=== PATIENT | male | born 1955 | race Caucasian/White ===

== ENCOUNTER 2018-07-20 11:49 | Emergency (ER) | payer OTHER, BC ==
[~2018-07-20] VITALS: Ht 162.6 cm; Wt 101.1 kg
[2018-07-20] MEDS ORDERED: SODIUM CHLORIDE FLUSH 10ML SYR IVF ONE (12:30)
[2018-07-20 12:49] LABS: BASOPHILS # (AUTO) 0.03 x10^3/uL (0-0.1); BASOPHILS % (AUTO) 0 % (0-1); EOSINOPHILS # (AUTO) 0.12 x10^3/uL (0-0.4); EOSINOPHILS % (AUTO) 1 % (1-7); LYMPHOCYTES # (AUTO) 2.53 x10^3/uL (1-3.4); LYMPHOCYTES % (AUTO) 22 % (22-44); MD NO; MEAN CORPUSCULAR HEMOGLOBIN 31.9 pg (27.5-34.5); MEAN CORPUSCULAR HGB CONC 34.4 g/dL (33.2-36.2); MEAN CORPUSCULAR VOLUME 92.8 fL (81-97); MEAN PLATELET VOLUME 7.9 fL (7.4-10.4); MONOCYTES # (AUTO) 1.14 x10^3/uL (0.2-0.8); MONOCYTES % (AUTO) 10 % (2-9); NEUTROPHILS # (AUTO) 7.76 x10^3/uL (1.8-6.8); NEUTROPHILS % (AUTO) 67 % (42-75); PLATELET COUNT 225 x10^3/uL (130-400); RED BLOOD COUNT 5.42 x10^6/uL (4.38-5.82); RED CELL DISTRIBUTION WIDTH 13.1 % (9.4-14.8)
[2018-07-20 13:01] LABS: CHLORIDE 108 mmol/L (98-107)
[2018-07-20 13:02] LABS: ALANINE AMINOTRANSFERASE 20 U/L (12-78); ALBUMIN 3.9 g/dL (3.4-5.0); ANION GAP 6 mmol/L (5-15); CREATININE 0.99 mg/dL (0.7-1.3)
[2018-07-20 13:03] LABS: ALKALINE PHOSPHATASE 59 U/L (45-117); BILIRUBIN,TOTAL 0.5 mg/dL (0.2-1.0); TOTAL PROTEIN 7.8 g/dL (6.4-8.2)
[2018-07-20 13:21] LABS: MICROSCOPIC NOT IND
[2018-07-20 13:24] LABS: CULTURE INDICATED? NO
[2018-07-20] MEDS ORDERED: OMNIPAQUE 350 MG/ML, 100ML BOTTLE ONE (14:00)
[2018-07-20 15:24] VITALS: BP 109/62
== END 2018-07-20 15:26 | disposition home or self-care (01) ==
LOC: ED 15:08
DX: K57.30 Diverticulosis of large intestine without perforation or abscess without bleeding (principal); I10 Essential (primary) hypertension; F17.200 Nicotine dependence, unspecified, uncomplicated
CPT/HCPCS: 36415; 74177; 80053; 81003; 83605; 83690; 85025; 99284; Q9967

== ENCOUNTER 2018-08-07 10:56 | Emergency (ER) | payer OTHER, BC ==
[~2018-08-07] VITALS: Ht 160 cm; Wt 100.7 kg
[2018-08-07 10:58] VITALS: BP 148/94
[2018-08-07] MEDS ORDERED: OXYMETAZOLINE NASAL SPRAY 0.05%, 15ML ONE ×2 (11:54→12:12)
--- NOTE | 2018-08-07 12:15 | NUR ---
DR. SCHNEIDER AT BEDSIDE.
[2018-08-08] MEDS ORDERED: HYDR-3653 PO (14:38)
[2018-08-08] MEDS ORDERED: ONDA4TAB13 SL (14:39)
[2018-08-08] MEDS ORDERED: CEPH-368 PO (14:40)
== END 2018-08-07 12:52 | disposition home or self-care (01) ==
LOC: ED 11:08
DX: R04.0 Epistaxis (principal); I10 Essential (primary) hypertension; F17.200 Nicotine dependence, unspecified, uncomplicated
CPT/HCPCS: 30901; 99284

== ENCOUNTER 2018-08-07 14:49 | Inpatient (IN) | payer OTHER, BC ==
[~2018-08-07] VITALS: Ht 160 cm; Wt 108.3 kg
[2018-08-07] MEDS ORDERED: BENZOCAINE AEROSOL SPRAY 20%, 60ML ONE (15:07)
[2018-08-07 15:44] LABS: BASOPHILS # (AUTO) 0.05 x10^3/uL (0-0.1); BASOPHILS % (AUTO) 0 % (0-1); EOSINOPHILS # (AUTO) 0.08 x10^3/uL (0-0.4); EOSINOPHILS % (AUTO) 1 % (1-7); LYMPHOCYTES # (AUTO) 2.63 x10^3/uL (1-3.4); LYMPHOCYTES % (AUTO) 20 % (22-44); MD NO; MEAN CORPUSCULAR HEMOGLOBIN 31.7 pg (27.5-34.5); MEAN CORPUSCULAR HGB CONC 34.3 g/dL (33.2-36.2); MEAN CORPUSCULAR VOLUME 92.3 fL (81-97); MEAN PLATELET VOLUME 7.6 fL (7.4-10.4); MONOCYTES # (AUTO) 0.66 x10^3/uL (0.2-0.8); MONOCYTES % (AUTO) 5 % (2-9); NEUTROPHILS % (AUTO) 74 % (42-75); PLATELET COUNT 272 x10^3/uL (130-400); RED BLOOD COUNT 5.02 x10^6/uL (4.38-5.82); RED CELL DISTRIBUTION WIDTH 13.3 % (9.4-14.8)
[2018-08-07 15:49] LABS: ANION GAP 9 mmol/L (5-15); CALCIUM 8.3 mg/dL (8.5-10.1); CHLORIDE 108 mmol/L (98-107); CREATININE 0.89 mg/dL (0.7-1.3)
[2018-08-07 15:57] LABS: INTERNATIONAL NORMALIZED RATIO 1.02 (0.93-1.1); PROTHROMBIN TIME 10.8 Seconds (9.6-11.5)
--- NOTE | 2018-08-07 16:03 | NUR ---
REPORT TO OR, IV IN PROGRESS, PT AWARE TO REMOVE ALL CLOTHING AND JEWELRY.
[2018-08-07] MEDS ORDERED: FENTANYL PF 100 MCG/2ML ONE (16:05)
[2018-08-07] MEDS ORDERED: SUCCINYLCHOLINE 20 MG/ML, 10ML ONE (16:05)
[2018-08-07] MEDS ORDERED: PROPOFOL 10 MG/ML, 20ML ONE (16:05)
[2018-08-07] MEDS ORDERED: ROCURONIUM 10MG/ML,5ML ONE (16:05)
--- NOTE | 2018-08-07 16:23 | NUR ---
OR TECH STATES THEY WILL INSERT IV UPSTAIRS. PT TRANSPORTED WITH TECH AND FAMILY.
[2018-08-07] MEDS ORDERED: EPINEPHRINE TOPICAL SOLN 1 MG/ML, 30ML ONE (16:25)
[2018-08-07] MEDS ORDERED: BUPIVACAINE/PF-EPI 0.5% 1:200K ONE (16:25)
[2018-08-07] MEDS ORDERED: MUPIROCIN OINT 2%, 22GM ONE (16:25)
[2018-08-07] MEDS ORDERED: LIDOCAINE 1%-EPI 1:100K, 30ML ONE (16:26)
[2018-08-07] MEDS ORDERED: EPINEPHRINE 1 MG/ML, 1ML ONE (16:26)
[2018-08-07] MEDS ORDERED: OXYMETAZOLINE NASAL SPRAY 0.05%, 15ML ONE (16:26)
[2018-08-07] MEDS ORDERED: COCAINE TOPICAL SOLN 4%, 4ML ONE (16:26)
[2018-08-07] MEDS ORDERED: PROMETHAZINE 25 MG/ML, 1ML IM PRN (16:30)
[2018-08-07] MEDS ORDERED: HYDROmorphone 2 MG/ML, 1ML IVPush PRN (16:30)
[2018-08-07] MEDS ORDERED: MEPERIDINE/PF 25MG/0.5ML IVPush PRN ×2 (16:30→18:00)
[2018-08-07] MEDS ORDERED: FENTANYL PF 100 MCG/2ML IV PRN ×2 (16:30→18:00)
[2018-08-07] MEDS ORDERED: ONDANSETRON 2MG/ML, 2ML IV PRN ×2 (16:30→18:00)
[2018-08-07] MEDS ORDERED: OXYcodone 5 MG/5 ML ORAL.SOL UDC PO PRN ×2 (16:30→18:00)
[2018-08-07] MEDS ORDERED: hydrALAzine 20 MG/ML, 1ML IV PRN ×2 (16:30→18:00)
[2018-08-07] MEDS ORDERED: LABETALOL 5MG/ML, 20ML IV PRN (16:30)
[2018-08-07] MEDS ORDERED: MIDAZOLAM 1 MG/ML, 2ML ONE (17:10)
[2018-08-07] MEDS ORDERED: ONDANSETRON 2MG/ML, 2ML ONE (17:15)
[2018-08-07] MEDS ORDERED: DEXAMETHASONE 4 MG/ML, 1ML ONE (17:15)
[2018-08-07] MEDS ORDERED: CEFAZOLIN 1,000 MG ONE (17:15)
[2018-08-07] MEDS ORDERED: PHENYLEPHRINE 10 MG/ML ONE (17:15)
[2018-08-07] MEDS ORDERED: PROMETHAZINE 12.5 MG SUPP PR PRN (18:00)
[2018-08-07] MEDS ORDERED: MIDAZOLAM 1 MG/ML, 2ML IV PRN (18:00)
[2018-08-07] MEDS ORDERED: ONDANSETRON ODT 8 MG PO PRN (18:00)
[2018-08-07] MEDS ORDERED: PROMETHAZINE 25 MG/ML, 1ML IV PRN (18:00)
[2018-08-07] MEDS ORDERED: EPHEDRINE 50 MG/ML, 1ML IVPush PRN (18:00)
[2018-08-07] MEDS ORDERED: PROMETHAZINE 25 MG SUPP PR PRN (18:00)
[2018-08-07] MEDS ORDERED: METOPROLOL 1 MG/ML, 5ML IV PRN (18:00)
[2018-08-07] MEDS ORDERED: DIPHENHYDRAMINE 50 MG/ML, 1ML IVPush PRN (18:00)
[2018-08-07] MEDS ORDERED: MORPHINE SULFATE 4 MG/ML, 1ML IVPush PRN (18:00)
[2018-08-07] MEDS ORDERED: MICROFIBRILLAR COLLAGEN 1 GM TP ONE (18:27)
[2018-08-07] MEDS ORDERED: MICROFIBRILLAR COLLAGEN 70X35X1 DRESSING ONE (18:27)
[2018-08-07] MEDS ORDERED: OXYcodone 5 MG/5 ML ORAL.SOL UDC ONE (19:43)
[2018-08-07] MEDS ORDERED: ACETAMINOPHEN 325 MG TABLET PO PRN (22:30)
[2018-08-07] MEDS ORDERED: OXYcodone/APAP 5/325MG TABLET PO PRN (22:30)
[2018-08-07] MEDS ORDERED: ONDANSETRON 2MG/ML, 2ML IVPush PRN (22:30)
[2018-08-07] MEDS ORDERED: LOSARTAN 50MG TABLET PO SCH (22:52)
[2018-08-08 03:15] VITALS: BP 154/88
[2018-08-08] MEDS: CEFAZOLIN PMX 1GM/50ML 50 ML IV SCH ×2 (04:46→11:37)
[2018-08-08] MEDS ORDERED: CALCIUM CARBONATE 500 MG TAB.CHEW PO PRN (05:00)
[2018-08-08 05:42] LABS: MEAN CORPUSCULAR HEMOGLOBIN 31.6 pg (27.5-34.5); MEAN CORPUSCULAR HGB CONC 33.7 g/dL (33.2-36.2); MEAN CORPUSCULAR VOLUME 93.7 fL (81-97); MEAN PLATELET VOLUME 7.8 fL (7.4-10.4); PLATELET COUNT 246 x10^3/uL (130-400); RED BLOOD COUNT 4.64 x10^6/uL (4.38-5.82); RED CELL DISTRIBUTION WIDTH 13.3 % (9.4-14.8)
[2018-08-08 05:46] LABS: ANION GAP 8 mmol/L (5-15); CALCIUM 8.4 mg/dL (8.5-10.1); CHLORIDE 103 mmol/L (98-107); CREATININE 0.91 mg/dL (0.7-1.3)
[2018-08-08 07:05] LABS: BASOPHILS # (AUTO) 0.03 x10^3/uL (0-0.1); BASOPHILS % (AUTO) 0 % (0-1); EOSINOPHILS % (AUTO) 0 % (1-7); LYMPHOCYTES # (AUTO) 1.72 x10^3/uL (1-3.4); LYMPHOCYTES % (AUTO) 9 % (22-44); MD SCAN; MONOCYTES # (AUTO) 0.83 x10^3/uL (0.2-0.8); MONOCYTES % (AUTO) 5 % (2-9); NEUTROPHILS # (AUTO) 15.96 x10^3/uL (1.8-6.8); NEUTROPHILS % (AUTO) 86 % (42-75)
[2018-08-08 07:10] VITALS: BP 155/89
[2018-08-08] MEDS ORDERED: HYDROCHLOROTHIAZIDE 25 MG TABLET PO SCH (09:00)
[2018-08-08 13:22] VITALS: BP 113/65
[2018-08-08 14:18] VITALS: BP 151/73
[2018-08-08] MEDS ORDERED: HYDR-3653 PO (14:38)
[2018-08-08] MEDS ORDERED: ONDA4TAB13 SL (14:39)
[2018-08-08] MEDS ORDERED: CEPH-368 PO (14:40)
[2018-08-09] MEDS ORDERED: CEPH-368 PO (17:14)
[2018-08-09] MEDS ORDERED: HYDR25TA6 PO (17:14)
[2018-08-09] MEDS ORDERED: LOSA100T7 PO (17:14)
== END 2018-08-08 15:00 | disposition home or self-care (01) | DRG 133 ==
LOC: OR 15:57 → EDIP 15:58 → 4NOR 20:00 → DCLOUNGE 08-08 14:40
PROVIDERS: ADMIT Hospitalist; ATTEND Hospitalist
PROC: 09BL0ZZ Excision of Nasal Turbinate, Open Approach (ICD-10-PCS; 2018-08-07)
PROC: 09QL0ZZ Repair Nasal Turbinate, Open Approach (ICD-10-PCS; 2018-08-07)
PROC: 09QL0ZZ Repair Nasal Turbinate, Open Approach (ICD-10-PCS; 2018-08-07)
PROC: 09SL0ZZ Reposition Nasal Turbinate, Open Approach (ICD-10-PCS; 2018-08-07)
PROC: 09RM07Z Replacement of Nasal Septum with Autologous Tissue Substitute, Open Approach (ICD-10-PCS; principal; 2018-08-07 16:30)
DX: R04.0 Epistaxis (principal); Z68.41 Body mass index [BMI] 40.0-44.9, adult; D72.828 Other elevated white blood cell count; E66.9 Obesity, unspecified; F17.210 Nicotine dependence, cigarettes, uncomplicated; I10 Essential (primary) hypertension; J33.8 Other polyp of sinus; J34.2 Deviated nasal septum; R09.02 Hypoxemia; Z82.49 Family history of ischemic heart disease and other diseases of the circulatory system; Z83.3 Family history of diabetes mellitus
CPT/HCPCS: 36415; 80048; 82040; 85025; 85610; 88305; 88311; 99285; G0378; J0171; J0690; J1100; J2250; J2405; J2704; J3010; J3490; J0330; J2370

== ENCOUNTER 2018-08-09 12:57 | Inpatient (IN) | payer OTHER, BC ==
[~2018-08-09] VITALS: Ht 162.6 cm; Wt 101.3 kg
[~2018-08-09 12:57] MED LIST: CEPH-368 PO; HYDR-3653 PO; ONDA4TAB13 SL
[2018-08-09] MEDS ORDERED: SODIUM CHLORIDE 0.9% 1,000 ML IV ONE ×2 (13:34→14:23)
[2018-08-09] MEDS ORDERED: SODIUM CHLORIDE FLUSH 10ML SYR IVF ONE (14:00)
[2018-08-09 14:21] LABS: ALBUMIN 3.5 g/dL (3.4-5.0); ANION GAP 8 mmol/L (5-15); CALCIUM 8.8 mg/dL (8.5-10.1); CHLORIDE 104 mmol/L (98-107); INTERNATIONAL NORMALIZED RATIO 1.05 (0.93-1.1); PROTHROMBIN TIME 11.1 Seconds (9.6-11.5)
[2018-08-09 14:22] LABS: CREATININE 0.87 mg/dL (0.7-1.3)
[2018-08-09 14:26] LABS: BASOPHILS # (AUTO) 0.04 x10^3/uL (0-0.1); BASOPHILS % (AUTO) 0 % (0-1); EOSINOPHILS # (AUTO) 0.12 x10^3/uL (0-0.4); EOSINOPHILS % (AUTO) 1 % (1-7); LYMPHOCYTES # (AUTO) 2.89 x10^3/uL (1-3.4); LYMPHOCYTES % (AUTO) 23 % (22-44); MD NO; MEAN CORPUSCULAR HEMOGLOBIN 31.8 pg (27.5-34.5); MEAN CORPUSCULAR HGB CONC 34.2 g/dL (33.2-36.2); MEAN PLATELET VOLUME 7.6 fL (7.4-10.4); MONOCYTES # (AUTO) 1.03 x10^3/uL (0.2-0.8); MONOCYTES % (AUTO) 8 % (2-9); NEUTROPHILS # (AUTO) 8.41 x10^3/uL (1.8-6.8); NEUTROPHILS % (AUTO) 67 % (42-75); PLATELET COUNT 219 x10^3/uL (130-400); RED BLOOD COUNT 4.46 x10^6/uL (4.38-5.82); RED CELL DISTRIBUTION WIDTH 12.9 % (9.4-14.8)
[2018-08-09] MEDS ORDERED: SODIUM CHLORIDE FLUSH 10ML SYR IVF PRN (14:30)
--- NOTE | 2018-08-09 14:35 | NUR ---
PT ARRIVES TO ED WITH EPITAXIS X 2 DAYS NOW. PT HAD CAUTERIZATION LAST NIGHT. HOWEVERE WHEN HE WOKE UP THIS MORNING HE HAD BLEEDING AGAIN. PACKING WAS IN PLACE BUT HE WAS SWALLOWING COPIOUS AMOUNTS. PT REPROTS THAT HE FEELS THE BLOOD DRIP DOWN HIS PALATE. PT CONNECTED TO MONITORS AND CALL LIGHT IN REACH. AWAITING FURHTER ORDERS.
[2018-08-09] MEDS ORDERED: SODIUM CHLORIDE 0.9% 1,000 ML IV SCH (14:36)
[2018-08-09] MEDS ORDERED: HYDROcodone/APAP 5/325 TABLET PO PRN (15:00)
[2018-08-09] MEDS ORDERED: LABETALOL 5MG/ML, 20ML IVPush PRN (15:00)
[2018-08-09] MEDS ORDERED: morphine SULFATE 10 MG/ML, 1ML IVPush PRN (15:00)
[2018-08-09] MEDS ORDERED: ACETAMINOPHEN 325 MG TABLET PO PRN (15:00)
[2018-08-09] MEDS ORDERED: FENTANYL PF 100 MCG/2ML ONE (15:10)
[2018-08-09] MEDS ORDERED: NALOXONE 1 MG/ML, 2ML ONE (15:10)
[2018-08-09] MEDS ORDERED: FLUMAZENIL 0.1 MG/1 ML, 5ML ONE (15:10)
[2018-08-09] MEDS ORDERED: MIDAZOLAM 1 MG/ML, 5ML ONE (15:10)
[2018-08-09] MEDS ORDERED: LIDOCAINE-MPF 1%, 5ML ONE (15:26)
[2018-08-09 17:05] VITALS: BP 134/81
[2018-08-09] MEDS ORDERED: CEPH-368 PO (17:14)
[2018-08-09] MEDS ORDERED: LOSA100T7 PO (17:14)
[2018-08-09] MEDS ORDERED: HYDR25TA6 PO (17:14)
[2018-08-09 18:48] VITALS: BP 129/80
[2018-08-09] MEDS: AMPICILLIN/SULBACTAM 1,500 MG in SODIUM CHLORIDE 0.9% 50 ML IV SCH (19:31)
[2018-08-09] MEDS: NICOTINE 7 MG/24 HR PATCH.TD24 TD SCH (21:00)
[2018-08-09 21:50] VITALS: BP 120/74
[2018-08-10 00:12] VITALS: BP 122/77
[2018-08-10] MEDS: AMPICILLIN/SULBACTAM 1,500 MG in SODIUM CHLORIDE 0.9% 50 ML IV SCH ×4 (02:11→22:39)
[2018-08-10 02:13] VITALS: BP 122/85
[2018-08-10 05:00] VITALS: BP 127/71
[2018-08-10 05:30] LABS: BASOPHILS # (AUTO) 0.04 x10^3/uL (0-0.1); BASOPHILS % (AUTO) 0 % (0-1); EOSINOPHILS # (AUTO) 0.07 x10^3/uL (0-0.4); EOSINOPHILS % (AUTO) 1 % (1-7); LYMPHOCYTES % (AUTO) 23 % (22-44); MD NO; MEAN CORPUSCULAR HEMOGLOBIN 31.7 pg (27.5-34.5); MEAN CORPUSCULAR VOLUME 93.3 fL (81-97); MEAN PLATELET VOLUME 7.8 fL (7.4-10.4); MONOCYTES # (AUTO) 0.88 x10^3/uL (0.2-0.8); MONOCYTES % (AUTO) 9 % (2-9); NEUTROPHILS # (AUTO) 6.76 x10^3/uL (1.8-6.8); NEUTROPHILS % (AUTO) 67 % (42-75); PLATELET COUNT 208 x10^3/uL (130-400); RED CELL DISTRIBUTION WIDTH 13.1 % (9.4-14.8)
[2018-08-10 05:44] LABS: ANION GAP 4 mmol/L (5-15); CHLORIDE 110 mmol/L (98-107)
[2018-08-10 05:48] LABS: ALANINE AMINOTRANSFERASE 15 U/L (12-78); ALKALINE PHOSPHATASE 43 U/L (45-117); BILIRUBIN,TOTAL 0.6 mg/dL (0.2-1.0); CREATININE 0.89 mg/dL (0.7-1.3); TOTAL PROTEIN 6.3 g/dL (6.4-8.2)
[2018-08-10 06:45] VITALS: BP 120/76
[2018-08-10 08:53] VITALS: BP 124/80
[2018-08-10] MEDS: HYDROCHLOROTHIAZIDE 25 MG TABLET PO SCH (08:53)
[2018-08-10] MEDS ORDERED: HYDROCHLOROTHIAZIDE 25 MG TABLET PO SCH (09:00)
[2018-08-10] MEDS ORDERED: PROPOFOL 10 MG/ML, 20ML ONE (10:19)
[2018-08-10] MEDS ORDERED: NALOXONE 0.4 MG/ML, 1ML ONE (10:19)
[2018-08-10] MEDS ORDERED: ONDANSETRON 2MG/ML, 2ML ONE (10:19)
[2018-08-10] MEDS ORDERED: DEXAMETHASONE 4 MG/ML, 1ML ONE (10:19)
[2018-08-10] MEDS ORDERED: CEFAZOLIN 1,000 MG ONE (10:19)
[2018-08-10] MEDS ORDERED: SUCCINYLCHOLINE 20 MG/ML, 10ML ONE (10:19)
[2018-08-10] MEDS ORDERED: LABETALOL 5MG/ML, 20ML ONE (10:19)
[2018-08-10 14:39] VITALS: BP 121/72
[2018-08-10] MEDS ORDERED: LIDOCAINE 1%-EPI 1:100K, 30ML ONE (15:56)
[2018-08-10] MEDS ORDERED: BACITRACIN OINT 500U/GM, 15 GM ONE (15:56)
[2018-08-10] MEDS ORDERED: OXYMETAZOLINE NASAL SPRAY 0.05%, 15ML ONE (15:56)
[2018-08-10] MEDS ORDERED: EPINEPHRINE TOPICAL SOLN 1 MG/ML, 30ML ONE (15:56)
[2018-08-10] MEDS ORDERED: BACITRACIN 50,000 UNIT ONE (15:57)
[2018-08-10] MEDS ORDERED: FLUORESCEIN SODIUM 500 MG/5 ML ONE ×2 (16:02→17:18)
[2018-08-10] MEDS: D5%-LACTATED RINGERS 1,000 ML IV SCH (16:03)
[2018-08-10] MEDS ORDERED: FLUORESCEIN OPHTHALMIC 1 MG STRIP ONE (17:27)
[2018-08-10] MEDS ORDERED: FENTANYL PF 250 MCG/5ML ONE (17:32)
[2018-08-10] MEDS ORDERED: MIDAZOLAM 1 MG/ML, 2ML ONE (17:32)
[2018-08-10] MEDS ORDERED: SUGAMMADEX 200 MG/2 ML IVPush ONE (19:17)
[2018-08-10] MEDS ORDERED: FENTANYL PF 100 MCG/2ML IV PRN (19:30)
[2018-08-10] MEDS ORDERED: ACETAMINOPHEN 325 MG TABLET PO PRN (19:30)
[2018-08-10] MEDS ORDERED: HYDROmorphone 2 MG/ML, 1ML IVPush PRN (19:30)
[2018-08-10] MEDS ORDERED: MEPERIDINE/PF 25MG/0.5ML IVPush PRN (19:30)
[2018-08-10] MEDS ORDERED: hydrALAzine 20 MG/ML, 1ML IV PRN (19:30)
[2018-08-10] MEDS ORDERED: ALBUTEROL SULFATE 2.5 MG/3 ML NPPB PRN (19:30)
[2018-08-10] MEDS ORDERED: LABETALOL 5MG/ML, 20ML IV PRN (19:30)
[2018-08-10] MEDS ORDERED: OXYcodone 5 MG/5 ML ORAL.SOL UDC PO PRN (19:30)
[2018-08-10] MEDS ORDERED: LORazepam 2 MG/ML, 1ML IVPush PRN (19:30)
[2018-08-10] MEDS ORDERED: PROMETHAZINE 25 MG/ML, 1ML IV PRN (19:30)
[2018-08-10] MEDS: NICOTINE 7 MG/24 HR PATCH.TD24 TD SCH (22:00)
[2018-08-10] MEDS: LOSARTAN 50MG TABLET PO SCH (22:00)
[2018-08-11 00:18] VITALS: BP 122/83
[2018-08-11 04:00] VITALS: BP 116/58
[2018-08-11] MEDS: D5%-LACTATED RINGERS 1,000 ML IV SCH ×3 (04:45→16:00)
[2018-08-11] MEDS: AMPICILLIN/SULBACTAM 1,500 MG in SODIUM CHLORIDE 0.9% 50 ML IV SCH ×2 (04:46→09:51)
[2018-08-11 05:32] LABS: BASOPHILS # (AUTO) 0.04 x10^3/uL (0-0.1); BASOPHILS % (AUTO) 0 % (0-1); EOSINOPHILS # (AUTO) 0.16 x10^3/uL (0-0.4); EOSINOPHILS % (AUTO) 2 % (1-7); LYMPHOCYTES # (AUTO) 1.57 x10^3/uL (1-3.4); LYMPHOCYTES % (AUTO) 15 % (22-44); MD NO; MEAN CORPUSCULAR HEMOGLOBIN 32.4 pg (27.5-34.5); MEAN CORPUSCULAR HGB CONC 35.1 g/dL (33.2-36.2); MEAN CORPUSCULAR VOLUME 92.4 fL (81-97); MEAN PLATELET VOLUME 7.9 fL (7.4-10.4); MONOCYTES # (AUTO) 0.65 x10^3/uL (0.2-0.8); MONOCYTES % (AUTO) 6 % (2-9); NEUTROPHILS % (AUTO) 77 % (42-75); PLATELET COUNT 210 x10^3/uL (130-400); RED BLOOD COUNT 3.44 x10^6/uL (4.38-5.82); RED CELL DISTRIBUTION WIDTH 13.1 % (9.4-14.8)
[2018-08-11 07:48] VITALS: BP 99/65
[2018-08-11] MEDS: LOSARTAN 50MG TABLET PO SCH (09:00)
[2018-08-11] MEDS: HYDROCHLOROTHIAZIDE 25 MG TABLET PO SCH (09:49)
[2018-08-11] MEDS ORDERED: AMOX1TAB64 PO (13:17)
[2018-08-11 13:21] VITALS: BP 96/56
== END 2018-08-11 17:28 | disposition home or self-care (01) | DRG 134 ==
LOC: ED 13:24 → EDIP 14:23 → 4NOR 16:45
PROVIDERS: ADMIT Internal Medicine; ATTEND Internal Medicine
PROC: B3191ZZ Fluoroscopy of Right External Carotid Artery using Low Osmolar Contrast (ICD-10-PCS; 2018-08-09)
PROC: B3131ZZ Fluoroscopy of Right Common Carotid Artery using Low Osmolar Contrast (ICD-10-PCS; 2018-08-09)
PROC: B3111ZZ Fluoroscopy of Right Brachiocephalic-Subclavian Artery using Low Osmolar Contrast (ICD-10-PCS; 2018-08-09)
PROC: B41F1ZZ Fluoroscopy of Right Lower Extremity Arteries using Low Osmolar Contrast (ICD-10-PCS; 2018-08-09)
PROC: B3101ZZ Fluoroscopy of Thoracic Aorta using Low Osmolar Contrast (ICD-10-PCS; 2018-08-09)
PROC: B3161ZZ Fluoroscopy of Right Internal Carotid Artery using Low Osmolar Contrast (ICD-10-PCS; 2018-08-09)
PROC: 2Y41X5Z Packing of Nasal Region using Packing Material (ICD-10-PCS; 2018-08-09)
PROC: B41C1ZZ Fluoroscopy of Pelvic Arteries using Low Osmolar Contrast (ICD-10-PCS; 2018-08-09)
PROC: B31Q1ZZ Fluoroscopy of Cervico-Cerebral Arch using Low Osmolar Contrast (ICD-10-PCS; 2018-08-09)
PROC: 09TU8ZZ Resection of Right Ethmoid Sinus, Via Natural or Artificial Opening Endoscopic (ICD-10-PCS; 2018-08-10)
PROC: 09BL8ZZ Excision of Nasal Turbinate, Via Natural or Artificial Opening Endoscopic (ICD-10-PCS; 2018-08-10)
PROC: 03L Upper Arteries, Occlusion (ICD-10-PCS; principal; 2018-08-10 18:00)
DX: R04.0 Epistaxis (principal); I10 Essential (primary) hypertension; D72.829 Elevated white blood cell count, unspecified; E66.9 Obesity, unspecified; F17.210 Nicotine dependence, cigarettes, uncomplicated; G47.33 Obstructive sleep apnea (adult) (pediatric); Z71.6 Tobacco abuse counseling; Z68.38 Body mass index [BMI] 38.0-38.9, adult
CPT/HCPCS: 36415; J7121; 37244; 70486; 76937; 80048; 80053; 82040; 85025; 85610; 85730; 86850; 86900; 88304; 99156; 99157; G0378; J0690; J1100; J2250; J2310; J2405; J2704; J3010; J3490; C1751; C1760; C1769; C1894; J0295; J0330; J0360; J7030

== ENCOUNTER 2021-02-02 12:09 | Emergency (ER) | payer OTHER, BC ==
[~2021-02-02] VITALS: Ht 162.6 cm; Wt 100.2 kg
[~2021-02-02 12:09] MED LIST changes: +AMOX1TAB64 PO; +HYDR25TA6 PO; +LOSA100T14 PO
--- NOTE | 2021-02-02 12:37 | NUR ---
JAIRO BALLESTEROS AT BS NOW.
[2021-02-02] MEDS ORDERED: ONDANSETRON ODT 4 MG PO ONE (13:00)
[2021-02-02] MEDS ORDERED: CYCLOBENZAPRINE 10 MG TABLET PO ONE (13:00)
[2021-02-02] MEDS ORDERED: OXYcodone/APAP 5/325MG TABLET PO ONE (13:00)
[2021-02-02] MEDS ORDERED: ONDANSETRON ODT 4 MG ONE (13:02)
[2021-02-02] MEDS ORDERED: CYCLOBENZAPRINE 10 MG TABLET ONE (13:03)
[2021-02-02] MEDS ORDERED: OXYcodone/APAP 5/325MG TABLET ONE (13:03)
--- NOTE | 2021-02-02 13:12 | NUR ---
PT MEDICATED PER ORDERS. REPORTS HE TOOK FLEXERIL & ALEVE & MEDICAL MARIJUANA AT HOME WITHOUT RELIEF.
[2021-02-02 13:45] VITALS: BP 153/80
--- NOTE | 2021-02-02 13:52 | NUR ---
PT REPORTS SOME PAIN RELIEF AFTER MEDS. D/C INSTRUCTIONS, MEDS & F/U APPT RV'WD WITH PT AND FAMILY. RX GIVEN X3 (PERCOCET RX SENT TO PT'S PHARMACY). ASSISTED PT OUT OF ED VIA WC WITH FAMILY.
== END 2021-02-02 13:57 | disposition home or self-care (01) ==
LOC: ED 13:46
DX: M54.42 Lumbago with sciatica, left side (principal); L20.84 Intrinsic (allergic) eczema; I10 Essential (primary) hypertension; E66.9 Obesity, unspecified
CPT/HCPCS: 99284; J7512; Q0162